=== PATIENT | female | born 1955 ===

== ENCOUNTER 2020-05-26 08:00 | Inpatient (IN) | payer OTHER ==
[~2020-05-26] VITALS: Ht 170.2 cm; Wt 111.1 kg
[2020-05-26] MEDS ORDERED: SINGULAIR 10MG10 MG PO (10:23)
[2020-05-26] MEDS ORDERED: LOSARTAN-HCTZ1 EAC2 PO (10:23)
[2020-05-26] MEDS ORDERED: ATORVASTATIN CA40 MG PO (10:23)
[2020-05-26] MEDS ORDERED: NORVASC5 MG PO (10:24)
[2020-05-26] MEDS ORDERED: ZANAFLEX4 M1 PO (10:25)
[2020-05-26] MEDS ORDERED: NABUMETONE750 MG PO (10:25)
[2020-05-26] MEDS ORDERED: PROTONIX40 MG PO (10:25)
[2020-05-26] MEDS ORDERED: DERMACINRX5000 UNIT PO (10:26)
[2020-05-26] MEDS ORDERED: FOSAMAX70 MG PO (10:26)
[2020-06-02] MEDS ORDERED: VITAMIN D31250 MCG (08:11)
[2020-06-04] MEDS ORDERED: ACETAMINOPHEN-1 EAC2 PO (11:59)
[2020-06-04] MEDS ORDERED: GABAPENTIN100 MG PO (11:59)
[2020-06-04] MEDS ORDERED: XARELTO10 MG PO (11:59)
[2020-06-04] MEDS ORDERED: NORFLEX100MG PO (11:59)
== END 2020-06-04 16:22 | DRG 470 ==
LOC: SURG 06-02 05:58 → O/R 06-02 05:58 → RECOVERY 06-02 08:00 → SURG 06-02 14:37
PROVIDERS: ADMIT Orthopaedic Surgery; ATTEND Orthopaedic Surgery
PROC: 0SRD0J9 Replacement of Left Knee Joint with Synthetic Substitute, Cemented, Open Approach (ICD-10-PCS; principal; 2020-06-02 12:30)
DX: M17.12 Unilateral primary osteoarthritis, left knee (principal); D62 Acute posthemorrhagic anemia; I13.10 Hypertensive heart and chronic kidney disease without heart failure, with stage 1 through stage 4 chronic kidney disease, or unspecified chronic kidney disease; N18.2 Chronic kidney disease, stage 2 (mild); J45.20 Mild intermittent asthma, uncomplicated; G47.33 Obstructive sleep apnea (adult) (pediatric)

== ENCOUNTER 2020-06-17 11:47 | Outpatient (CLI) | payer OTHER ==
[~2020-06-17 11:47] MED LIST: ACETAMINOPHEN-1 EAC2 PO; ATORVASTATIN CA40 MG PO; DERMACINRX5000 UNIT PO; FOSAMAX70 MG PO; GABAPENTIN100 MG PO; LOSARTAN-HCTZ1 EAC2 PO; NABUMETONE750 MG PO; NORFLEX100MG PO; NORVASC5 MG PO; PROTONIX40 MG PO; SINGULAIR 10MG10 MG PO; VITAMIN D31250 MCG; XARELTO10 MG PO; ZANAFLEX4 M1 PO
== END 2020-06-17 11:48 | disposition home or self-care (01) ==
LOC: RAD 11:47
PROVIDERS: ATTEND Internal Medicine Pulmonary Disease
DX: J45.40 Moderate persistent asthma, uncomplicated (principal); J30.1 Allergic rhinitis due to pollen; G47.33 Obstructive sleep apnea (adult) (pediatric); R06.02 Shortness of breath; J98.11 Atelectasis

== ENCOUNTER 2020-06-17 12:51 | Outpatient (CLI) | payer OTHER | END 2020-06-17 15:00 | disposition home or self-care (01) | LOC: LAB 12:51 | PROVIDERS: ATTEND Internal Medicine Pulmonary Disease | DX: R06.02 Shortness of breath (principal); J45.30 Mild persistent asthma, uncomplicated ==